=== PATIENT | male | born 1985 | race Caucasian/White ===

== ENCOUNTER 2021-06-01 10:23 | Emergency (ER) | payer SELFPAY ==
--- OUTSIDE RECORDS SUMMARY | 2021-06-01 10:27 | XMS REPORT | Continuity of Care Document ---
:1985 Author Organization [facility] t Address [address] [place] [address] Care Team Providers Name Role Phone ALEX, Stephanie Attending Clinician Unavailable Brittani ABRAMS Attending Clinician Unavailable Trung RENEE Attending Clinician Unavailable Richmond PAEZ Attending Clinician Unavailable Gayathri WRIGHT Attending Clinician Unavailable ALBER Attending Clinician Unavailable Shirley SMART Admitting Clinician Unavailable Payers Payer Name Policy Type Policy Number Effective Date Expiration Date S ource Problems This patient has no known problems. Allergies, Adverse Reactions, Alerts This patient has no known allergies or adverse reactions. Medications This patient has no known medications. Procedures This patient has no known procedures. Encounters Start End Encounter Admission Attending Care Care Encounter Source Date/Time Date/Time Type Type Clinicians Facility Department ID 2021-05-[address] [facility] [id number] H arris 16:46:52 [facility] 2021-05-[address] [facility] [id number] H arris 23:16:27 [facility] 2021-05-26 Inpatient [facility] [id number] H arris 14:43:42 [facility] 2021-05-26 [facility] [id number] H arris 14:33:09 [facility] 2021-05-[address] [facility] [id number] H arris 13:44:15 [facility] 2021-05-26 Inpatient 1 JOSE ALBERTO [facility] [id number] [place] 11:16:[address] [facility] 2021-07-10 2021-07-10 Outpatient VÍCTOR [facility] [id number] [place] 00:00:00 00:00:00 MARIA TERESA gonzalez 2021-06-13 2021-06-13 Outpatient PHILIPPE, [facility] [id number] [place] 00:00:00 00:00:00 [facility] 2021-06-12 2021-06-12 Outpatient JOSE ALBERTO, [facility] [id number] [place] 00:00:00 00:00:[address] [facility] 2021-06-06 2021-06-06 Outpatient KYLE, [facility] [id number] [place] 00:00:00 00:00:00 LEIDA Qureshi 2021-05-28 2021-05-29 Emergency ALBER, [facility] [id number] [place] 00:00:00 00:00:00 GALILEA [address] 2021-05-26 2021-05-28 [facility] [id number] [place] 11:16:00 19:53:[address] [facility] 2021-05-27 2021-05-27 Inpatient JOSE ALBERTO, [facility] [id number] [place] 17:19:03 18:17:[address] [facility] 2021-05-27 2021-05-[address] [facility] [id number] [place] 08:55:03 09:43:57 [facility] 2021-05-26 2021-05-[address] [facility] [id number] [place] 11:30:01 14:54:09 [facility] 2021-05-26 2021-05-[address] [facility] [id number] [place] 12:07:04 12:35:34 [facility] 2021-05-26 2021-05-26 Emergency DARK, [facility] [id number] [place] 11:19:43 12:19:07 [facility] 2021-05-26 2021-05-[address] [facility] [id number] [place] 11:30:01 11:30:01 [facility] 2021-05-26 2021-05-[address] [facility] [id number] [place] 11:10:40 11:20:43 [facility] 2021-05-26 2021-05-26 Emergency [facility] [id number] [place] 00:00:00 00:00:00 Health Results Test Description Test Time Test Comments Results Result Comments Source SARS-CoV-2 RNA Resp Ql KENDRA+probe 2021-05-26 15:57:36 Test Item Value Reference Range Interpretation Comme nts Hospitalized? (test code = No 34750-4) ICU? (test code = 14826-8) No Symptomatic as defined by CDC? No (test code = 83456-3) Employed in Healthcare? (test No code = 92887-0) Resident in a congregate care No setting (including nursing homes, residential care for people with intellectual and developmental disabilities, psychiatric treatment facilities, group homes, board and care homes, homeless penitentiary, foster care or other): (test code = 86203-1) SARS-CoV-2 RNA Resp Ql NOT DETECTED Not Detected INTER PRETATION: No KENDRA+probe (test code = [place] [address]-7) SARS-CoV-2 Yara navirus (COVID-19) were present in this patient's sample by this test. A no t detected result does not exclude the possibility of active infection with this virus due to other fa ctors that may affect the results such as a poorly col lected sample, viral t iters below the limit of de tection of the assay, and the infrequent poss ibility of inhibitors in t he sample. This result guanako uld be interpreted in conjunction with clinical, radiographic, a nd other laboratory find ings and should not be u sed as the sole indicator of active infection with SARS-CoV-2 Coronavirus ([place] VID-19). COMMENT: This francheska real-time reverse transcriptase polymerase chain reaction (RT-PCR) test rapidly detects SARS-CoV-2 (COVID-19) virus from nasopharyngeal and nasal swab specimens. In accordance with the FDA's guidance document "Policy for Diagnostic Tests for Coronavirus Disease-2019 during the Public Health Emergency", this test was developed, and its performance characteristics were verified by the [facility] molecular diagnostics laboratory and is authorized for clinical diagnostic use. This laboratory is certified under the Clinical Laboratory Improvement Amendments (CLIA) as qualified to perform high complexity clinical laboratory testing.
--- NOTE | 2021-06-01 11:26 | RAD REPORT ---
EXAM DESCRIPTION: RAD - Chest Single View - 06/01/2021 11:21 am CLINICAL HISTORY: chest wall pain Chest pain. COMPARISON: No comparisons FINDINGS: Portable technique limits examination quality. The lungs are grossly clear. The heart is normal in size. No displaced fractures. IMPRESSION: No acute intrathoracic process suspected.
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
[2021-06-01 12:08] LABS: SARS-COV-2 RT PCR NEGATIVE (NEGATIVE)
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
[2021-06-01] MEDS ORDERED: HYDROCODONE/APAP 10/325 TAB ONE (12:57)
[2021-06-01 13:09] VITALS: BP 134/79; TEMP 98.4; O2SAT 100
== END 2021-06-01 13:04 | disposition left against medical advice (07) ==
LOC: ER 10:23
DX: S06.6X9A Traumatic subarachnoid hemorrhage with loss of consciousness of unspecified duration, initial encounter (principal); Z20.822 Contact with and (suspected) exposure to COVID-19; Z53.29 Procedure and treatment not carried out because of patient's decision for other reasons
CPT/HCPCS: 0240U; 70450; 71045; 87070; 87081; 99285